=== PATIENT | male | born 1935 | race Caucasian/White ===

== ENCOUNTER → 2017-12-02 | Outpatient (CLI) | payer MEDICARE ==
--- NOTE | 2017-12-02 11:11 | DIAGNOSTIC IMAGING REPORT ---
SCROTAL ULTRASOUND CLINICAL HISTORY: HYDROCELE COMPARISON STUDY: None. TECHNIQUE: Grayscale and color and duplex Doppler sonography of the scrotum was performed. FINDINGS: The right testis measures 4.6 x 2.2 x 3.2 cm and the left measures 4.5 x 2.5 x 3.1 cm. Color flow was identified within each testis and no testicular mass was identified. Note is made of a large complex bilateral hydroceles, right larger than left. A 6 mm scrotalith was noted within the left hemiscrotum. A 4 mm left epididymal cyst was noted. IMPRESSION: 1. Large complex bilateral hydroceles, right larger than left. 2. No testicular mass identified. No evidence for testicular torsion. Electronically signed by: Bennie Garces M.D. 12/02/2017 11:09 AM Dictated Date/Time: 12/02/2017 11:08 AM
== END | disposition home or self-care (01) ==
LOC: EDSEX → C.ULTR 10:16
PROVIDERS: ATTEND Urology
DX: N43.3 Hydrocele, unspecified (principal)